=== PATIENT | female | born 1945 | race Caucasian/White ===

== ENCOUNTER 2018-08-19 11:29 | Emergency (ER) | payer MEDICARE ==
[2018-08-19 12:33] LABS: #Eosinphils 0.2 thou/uL (0.0-0.7); #Lymphocytes 1.2 thou/uL (1.20-3.40); #Monocytes 0.4 thou/uL (0.11-0.59); #Neutrophils 5.5 thou/uL (1.40-6.50); %Basophils 0.6 % (0.0-1.0); %Eosinophils 2.5 % (0.0-10.0); %Lymphocytes 16.9 % (21.0-51.0); %Monocytes 5.7 % (0.0-10.0); %Neutrophils 74.4 % (42.0-75.0); Hemoglobin 14.2 g/dL (12.0-16.0); Mean Corpuscular HGB CONC 33.7 g/dL (32.0-36.0); Mean Corpuscular Hemoglobin 31.8 pg (27.0-31.0); Mean Corpuscular Volume 94.1 fL (78.0-98.0); Mean Platelet Volume 8.1 fL (7.4-10.4); Platelet Count 210 thou/uL (130-400); RBC Distribution Width 12.6 % (11.5-14.5); Red Blood Cell (RBC) Count 4.46 mill/uL (4.20-5.40); White Blood Cell (WBC) Count 7.4 thou/uL (4.8-10.8)
[2018-08-19 12:46] LABS: Bilirubin Negative (Negative); Blood, Urine Small (Negative); Clarity CLEAR (Clear); Glucose, Urine (Dipstick) Negative (Negative); Leukocyte Moderate (Negative); Nitrite Negative (Negative); Protein, Urine (Dipstick) Negative (Neg-Trace); Specific Gravity, Urine 1.017 (1.002-1.036); Urobilinogen 0.2 mg/dL (0.2-1.0); pH, Urine 6.5 (5.0-9.0)
[2018-08-19 12:49] LABS: Albumin 4.4 g/dL (3.4-4.8); Alkaline Phosphatase 63 U/L (40-150); Anion Gap 12 mmol/L (10-20); BUN (Urea Nitrogen) 14 mg/dL (9.8-20.1); Bilirubin, Total 1.3 mg/dL (0.2-1.2); Calc. Creatinine Clearance 0 mL/min (70-130); Calcium 9.8 mg/dL (7.8-10.44); Carbon Dioxide 28 mmol/L (23-31); Chloride 104 mmol/L (98-107); Estimated GFR-MDRD 76; Globulin 3.3 g/dL (2.4-3.5); Glucose 95 mg/dL (83-110); Potassium 3.9 mmol/L (3.5-5.1); Protein, Total 7.7 g/dL (6.0-8.3); Sodium 140 mmol/L (136-145)
[2018-08-19 12:49] LABS: Bacteria/HPF None Seen HPF (None Seen); Hyaline Casts/LPF 0-3 HYALINE CAST LPF (0-3 Hyaline); Pathc Cast-AUWi Flag 0.29 (0-2.49); Squamous Epithelial 0-3 HPF (0-3)
[2018-08-19 12:50] LABS: AST (SGOT) 21 U/L (5-34)
[2018-08-19 12:51] LABS: ALT (SGPT) 14 U/L (8-55)
[2018-08-19 13:00] LABS: CK (CPK) 53 U/L (29-168)
[2018-08-19 13:13] LABS: CKMB 2.1 ng/mL (0-6.6); Troponin I Less than 0.010 ng/mL (< 0.028)
--- NOTE | 2018-08-19 13:16 | RAD ---
FRONTAL VIEW CHEST: Date: 08/19/18 COMPARISON: 11/25/16. INDICATION: Dyspnea. FINDINGS: There remains enlargement of the cardiac silhouette. Postoperative change in the mediastinum and left side cardiac pacing device remain. Persistent elevation of right hemidiaphragm. There is stable opac ity at the lateral left lung base. Otherwise no significant interval change. IMPRESSION: Stable findings of CHF. POS: [facility]
[2018-08-19] MEDS ORDERED: Cephalexin 250 MG CAP ONE (14:07)
--- NOTE | 2018-08-22 14:06 | EKG ---
Test Reason : Blood Pressure : / mmHG Vent. Rate : 090 BPM Atrial Rate : 131 BPM P-R Int : 000 ms QRS Dur : 094 ms QT Int : 390 ms P-R-T Axes : 081 -20 102 degrees QTc Int : 477 ms Sinus rhythm with atrial pacing Left ventricular hypertrophy with repolarization abnormality Abnormal ECG Confirmed by LISA MOON DO ([id number]), continuity editor UZAIR KINGSLEY ([id number]) on 08/22/2018 2:05:50 PM Referred By: Confirmed By:LISA MOON DO
== END 2018-08-19 15:34 | disposition home or self-care (01) ==
LOC: ERS 11:29
DX: N39.0 Urinary tract infection, site not specified (principal); R53.1 Weakness; I25.10 Atherosclerotic heart disease of native coronary artery without angina pectoris; I11.0 Hypertensive heart disease with heart failure; I48.91 Unspecified atrial fibrillation
CPT/HCPCS: 36415; 71045; 80053; 81003; 81015; 82553; 84484; 85025; 93005

== ENCOUNTER 2018-11-05 14:08 | Emergency (ER) | payer MEDICARE ==
[2018-11-05 14:38] LABS: #Eosinphils 0.3 thou/uL (0.0-0.7); #Lymphocytes 1.4 thou/uL (1.20-3.40); #Monocytes 0.6 thou/uL (0.11-0.59); %Basophils 0.2 % (0.0-1.0); %Eosinophils 5.6 % (0.0-10.0); %Lymphocytes 25.8 % (21.0-51.0); %Monocytes 11.5 % (0.0-10.0); %Neutrophils 56.9 % (42.0-75.0); Hemoglobin 14.4 g/dL (12.0-16.0); Mean Corpuscular HGB CONC 33.3 g/dL (32.0-36.0); Mean Corpuscular Hemoglobin 30.9 pg (27.0-31.0); Mean Corpuscular Volume 92.6 fL (78.0-98.0); Mean Platelet Volume 7.5 fL (7.4-10.4); Platelet Count 172 thou/uL (130-400); RBC Distribution Width 12.5 % (11.5-14.5); Red Blood Cell (RBC) Count 4.65 mill/uL (4.20-5.40); White Blood Cell (WBC) Count 5.2 thou/uL (4.8-10.8)
[2018-11-05 14:58] LABS: ALT (SGPT) 13 U/L (8-55); AST (SGOT) 20 U/L (5-34); Albumin 4.2 g/dL (3.4-4.8); Alkaline Phosphatase 71 U/L (40-150); Anion Gap 14 mmol/L (10-20); BUN (Urea Nitrogen) 13 mg/dL (9.8-20.1); Bilirubin, Total 1.4 mg/dL (0.2-1.2); CK (CPK) 123 U/L (29-168); Calc. Creatinine Clearance 0 mL/min (70-130); Calcium 10.1 mg/dL (7.8-10.44); Carbon Dioxide 26 mmol/L (23-31); Chloride 104 mmol/L (98-107); Estimated GFR-MDRD 71; Globulin 3.3 g/dL (2.4-3.5); Glucose 90 mg/dL (83-110); Potassium 4.2 mmol/L (3.5-5.1); Protein, Total 7.5 g/dL (6.0-8.3); Sodium 140 mmol/L (136-145)
[2018-11-05] MEDS ORDERED: predniSONE 20 MG TAB ONE (16:20)
[2018-11-05] MEDS ORDERED: Azithromycin 250 MG TAB ONE (16:20)
--- NOTE | 2018-11-05 16:31 | RAD ---
PORTABLE AP CHEST X-RAY: 11/05/2018 HISTORY: Respiratory distress. COMPARISON: 08/19/2018 FINDINGS: A dual-lead left subclavian cardiac pacemaker device remains in place. Post surgical change related to CABG is again noted. The cardiac silhouette is magnified by projection but is stable in size. Ag ain noted is eventration of the right hemidiaphragm with elevation of the lateral left hemidiaphragm, which may be related to mild pleural and parenchymal scarring at the left lung base. The pulmonary vasculature is within normal limits. The lungs are otherwise clear. IMPRESSION: Overall stable chest without an acute cardiopulmonary process. There is stable increased density at the lateral left lung base, which may be a combination of mild elevation of the left hemidiaphragm an d epicardial fat pad. A similar finding was seen on the prior study, as well as on exam of 7. POS: [facility]
== END 2018-11-05 16:30 | disposition home or self-care (01) ==
LOC: ERS 14:08
DX: J44.1 Chronic obstructive pulmonary disease with (acute) exacerbation (principal); I10 Essential (primary) hypertension; I48.91 Unspecified atrial fibrillation; I25.10 Atherosclerotic heart disease of native coronary artery without angina pectoris
CPT/HCPCS: 36415; 71045; 80053; 82550; 83880; 84484; 85025; 93005; 94640; J7506

== ENCOUNTER 2018-11-16 09:42 | Inpatient (IN) | payer MEDICARE ==
[2018-11-16 10:13] LABS: #Eosinphils 0.3 thou/uL (0.0-0.7); #Lymphocytes 2.3 thou/uL (1.20-3.40); #Monocytes 0.6 thou/uL (0.11-0.59); #Neutrophils 10.3 thou/uL (1.40-6.50); %Basophils 0.1 % (0.0-1.0); %Eosinophils 1.9 % (0.0-10.0); %Lymphocytes 17.2 % (21.0-51.0); %Monocytes 4.2 % (0.0-10.0); %Neutrophils 76.6 % (42.0-75.0); Hemoglobin 15.2 g/dL (12.0-16.0); Mean Corpuscular HGB CONC 32.8 g/dL (32.0-36.0); Mean Corpuscular Hemoglobin 30.3 pg (27.0-31.0); Mean Corpuscular Volume 92.4 fL (78.0-98.0); Mean Platelet Volume 7.7 fL (7.4-10.4); Platelet Count 269 thou/uL (130-400); RBC Distribution Width 12.6 % (11.5-14.5); Red Blood Cell (RBC) Count 5.01 mill/uL (4.20-5.40); White Blood Cell (WBC) Count 13.4 thou/uL (4.8-10.8)
[2018-11-16 10:31] LABS: ALT (SGPT) 12 U/L (8-55); AST (SGOT) 15 U/L (5-34); Albumin 4.3 g/dL (3.4-4.8); Alkaline Phosphatase 71 U/L (40-150); Anion Gap 15 mmol/L (10-20); BUN (Urea Nitrogen) 20 mg/dL (9.8-20.1); CK (CPK) 49 U/L (29-168); Calc. Creatinine Clearance 0 mL/min (70-130); Calcium 9.9 mg/dL (7.8-10.44); Carbon Dioxide 25 mmol/L (23-31); Chloride 106 mmol/L (98-107); Estimated GFR-MDRD 62; Globulin 3.2 g/dL (2.4-3.5); Glucose 105 mg/dL (83-110); Lipase 14 U/L (8-78); Potassium 4.3 mmol/L (3.5-5.1); Protein, Total 7.5 g/dL (6.0-8.3); Sodium 142 mmol/L (136-145)
[2018-11-16] MEDS ORDERED: methylPREDNISolone Sod Succ/PF 125 MG/2 ML VIAL ONE (10:43)
--- NOTE | 2018-11-16 10:59 | RAD ---
RADIOGRAPH CHEST 1 VIEW: HISTORY: A 73-year-old female with chest pain and atrial fibrillation. FINDINGS: There is no air space density, pulmonary edema, or pneumothorax. The lateral costophrenic angles are sharp. There is a dual-lead left subclavian pacemaker. There are sternotomy wires. There are surg ical clips overlying the left side of the cardiac shadow. IMPRESSION: 1. No acute pulmonary findings. 2. Status post coronary artery bypass graft surgery is evidence for coronary atherosclerotic disease . 3. Pacemaker. jn [] POS: [facility]
--- NOTE | 2018-11-16 12:18 | CT ---
CT THORAX WITHOUT IV CONTRAST: Date: 11/16/18 HISTORY: Tachycardia and cough. Atrial fibrillation. COMPARISON: None available. FINDINGS: A dual lead left subclavian cardiac pacemaking device is noted in place with RA and RV leads. Dense v ascular calcifications are seen in the mitral valve annulus. Postsurgical changes related to CABG are noted. Multiple surgical clips are also seen in the epigastric region and left upper quadrant of the abdomen . There is a hiatal hernia noted. Dense vascular calcifications are seen in the coronary arteries, as well as involving the thoracic an d visualized upper abdominal aorta. There is ectasia of the ascending thoracic aorta which measures 4 .4 cm in diameter. There is a prominent pretracheal lymph node present measuring 1.3 cm in short axis dimension. There i s fat centrally within the lymph node. No additional enlarged lymph nodes are seen by CT size criteri a on this nonenhanced CT scan exam. There is scarring versus atelectasis in the lateral aspect of right lower lobe adjacent to the medias tinum in the region of the hiatal hernia. Lungs are otherwise clear. No discrete pulmonary nodule, ma ss, or pleural effusion is seen. Upper abdomen demonstrates grossly normal nonenhanced CT appearance. There is suggestion of a small d uodenal diverticulum also seen on prior CT abdomen on 03/08/16. IMPRESSION: 1. Lungs are clear aside from curvilinear scarring versus atelectasis at the lateral left lung base. 2. Postsurgical changes lower mediastinum and epigastric region, as well as adjacent to the splenic hilum. There is evidence of a hiatal hernia. 3. Ectasia of the ascending thoracic aorta measuring 4.4 cm in diameter. Dense atherosclerotic vascu lar calcifications are seen in the thoracic aorta, as well as involving the coronary arteries. 4. There is evidence of an aortic valve replacement. 5. Prominent mitral valve calcifications. 6. Remainder of findings are as described above. POS: [facility]
[2018-11-16] MEDS ORDERED: Metoclopramide HCl 10 MG/2 ML VIAL ONE (13:27)
[2018-11-16] MEDS ORDERED: Diltiazem 125 MG/25 ML ONE (13:27)
[2018-11-16] MEDS ORDERED: Acetaminophen 500 MG TAB ONE (14:56)
[2018-11-16] MEDS ORDERED: Azithromycin 500 MG VIAL ONE (14:56)
[2018-11-16] MEDS ORDERED: cefTRIAXone\\ROCEPHIN 2 GM VIAL ONE (14:56)
[2018-11-16] MEDS ORDERED: Diltiazem 125 MG in Sodium Chloride 0.9% 100 ML IVPB SCH (15:30)
[2018-11-16] MEDS ORDERED: cloNIDine 0.1 MG TAB PO PRN (15:38)
[2018-11-16] MEDS ORDERED: Bisacodyl 5 MG TAB PO PRN (15:38)
[2018-11-16] MEDS ORDERED: Sodium Chloride 0.65% Nasal 44 ML BOT EA NARE PRN (15:38)
[2018-11-16] MEDS ORDERED: Senokot S 8.6-50 MG TAB PO PRN (15:38)
[2018-11-16] MEDS ORDERED: Ondansetron PF 4 MG/2 ML Vial IVP PRN ×2 (15:38)
[2018-11-16] MEDS ORDERED: Diabetic Tussin 200 MG/10 ML UDCUP PO PRN (15:38)
[2018-11-16] MEDS ORDERED: hydrALAZINE 20 MG/ML VIAL SLOW IVP PRN (15:38)
[2018-11-16] MEDS ORDERED: Nitroglycerin 0.4 MG TAB (25 Tab Bottle) SL PRN (15:38)
[2018-11-16] MEDS ORDERED: Benzonatate 100 MG CAP PO PRN (15:38)
[2018-11-16 16:22] LABS: Prothrombin Time 13.1 SEC (12.0-14.7)
--- NOTE | 2018-11-16 17:20 | HP ---
PRIMARY CARE PHYSICIAN: Dr. Kimberly Solares. PRIMARY ECONOMIC DEVELOPMENT MANAGER: Dr. Julieta Giron. CHIEF COMPLAINT: Fast heart rate, cough, and generalized weakness. HISTORY OF PRESENTING ILLNESS: Ms. Palomo is a pleasant 73-year-old female with past medical history of coronary artery disease, aortic valve replacement initially with mechanical then bovine as well as history of hypertension, atrial fibrillation, chronic diastolic congestive heart failure, who presented to the emergency room with the above-mentioned complaint. History is mainly obtained by the patient herself. Electronic medical records have been reviewed. Ms. Palomo reports that she had one episode of atrial fibrillation after surgery few years ago and was briefly treated with Multaq and Coumadin for that. She has never undergone ablation or cardioversion. She follows up with Dr. Giron, but has been taken off Multaq and Coumadin many years ago when the atrial fibrillation did not reoccur. She reports that recently, about a week ago, she felt that she has an infection from one of the workers for her . She has been having cough, generalized weakness, and some chills. She was treated with steroids and a Z-Dereck by the ER physicians about a week ago and then followed up with a primary care physician, who treated her with nebulizer. She did not really feel that well at all. She started to notice that her heart rate is going faster. She was seen at Dr. Childers's office today it seems like and was sent to the ER when she was found to be in atrial fibrillation. She has a pacemaker and according to the notes from Cardiology's office, the atrial fibrillation burden was low per the pacemaker interrogation, but it did show that she is in persistent atrial tachycardia and atrial fibrillation for the last six days. In the emergency room, she has blood pressure of 177/136 and a heart rate in the 140s to 150s. One dose of Cardizem was given, which converted her from atrial fibrillation to atrial flutter. She is now being started on Cardizem drip and is being admitted for same. She was also found to have some wheezing in the ER, so was treated with Solu-Medrol as well as IV antibiotics for possible pneumonia; however, her chest x-ray and a CT scan of the chest are negative for any pneumonia or congestive heart failure. PAST MEDICAL HISTORY: 1. Coronary artery disease. 2. Degenerative joint disease. 3. Hiatal hernia. 4. Obesity. 5. History of prosthetic aortic valve. 6. Chronic diastolic congestive heart failure. 7. Hypertension. 8. Sleep apnea. PAST SURGICAL HISTORY: 1. Aortic valve replacement, initially mechanical, then bovine. 2. CABG. 3. Pacemaker placement. 4. Inguinal hernia repair. 5. Left knee surgery. 6. Hysterectomy. FAMILY HISTORY: Mother had heart disease. Maternal grandfather and grandmother had stroke. Maternal uncle had heart problems. SOCIAL HISTORY: She is and lives with her . No history of drug, tobacco, or alcohol abuse. ALLERGIES: INCLUDE BENADRYL, CEPHALOSPORIN, HYDROCHLOROTHIAZIDE, IRBESARTAN, CEFDINIR, MOXIFLOXACIN, AND IODINE, WHICH CAUSES ANAPHYLAXIS. CURRENT HOME MEDICATIONS: According to the note from [facility], she is on following; 1. Micardis 80 mg daily. 2. Iron 325 mg daily. 3. Lasix 20 mg daily. 4. Aspirin 81 mg daily. 5. Clonidine as needed. 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 REVIEW OF SYSTEMS: A 12-point review of system is done, it is negative except for those mentioned in the history and physical. CODE STATUS: Full code discussed with the patient. LABORATORY DATA: Her CBC shows WBCs at 13.4, neutrophils 76%. Serum chemistries unremarkable. BNP 247. Troponin normal. Lactic acid normal. Chest x-ray by my review has no evidence to suggest pleural effusion or edema. CT scan of the chest is negative for same. PHYSICAL EXAMINATION: VITAL SIGNS: Upon presentation, blood pressure 177/136, pulse of 155, respirations 21, temperature 98.8, and saturating 95% on room air. GENERAL: She does appear somewhat ill looking and pale, otherwise in no acute distress. She is awake, alert, and oriented x3. She does have some congestive sound and cough during the interview. HEENT: Mucous membrane is moist and pink. No oropharyngeal exudate or erythema. Head is normocephalic and atraumatic. Pupils are equal, reactive to light and accommodation. Extraocular movement intact. NECK: Supple without any lymphadenopathy, JVD, or bruit. CHEST: Evaluation shows diffuse expiratory wheezes, more so on the right side than the left side. No crackles. Rate and rhythm, tachycardic and irregular. No murmurs heard. ABDOMEN: Obese, soft, nontender, nondistended with positive bowel sounds. EXTREMITIES: Free of any cyanosis, clubbing, or edema. NEUROLOGIC: Nonfocal. SKIN: Free of any rashes or bruises. Feels warm and dry to touch. PSYCHIATRIC: Normal affect. IMPRESSION AND PLAN: 1. Atrial flutter with rapid ventricular response. The patient will be started on Cardizem drip and b.i.d. Lovenox for anticoagulation. We will consult electrophysiology as well as Cardiology for further recommendations. I have briefly discussed the possibility of ablation with the patient and at this time, she is requesting that this will be done as an outpatient as she is the sole care provider for her . Most likely scenario is adequate rate control and starting her on anticoagulation with discharge with outpatient ablation if necessary. We will wait for recommendations from Cardiology and electrophysiology groups. 2. Bronchitis. No evidence of pneumonia. Likely a viral versus superimposed bacterial bronchitis. She has clearly failed outpatient therapy. We will provide her with IV antibiotics in the hospital. Unfortunately, she has listed allergy to most of the common antibiotics used. She has tolerated the Rocephin and azithromycin in the ER. We will continue that at this time. 3. History of biological aortic valve. We will repeat the echocardiogram to assess the artificial valve. 4. Chronic diastolic congestive heart failure. Repeat echocardiogram as above. 5. Hypertension. Restart her home medication and monitor closely as she gives history of labile hypertension. 6. Add supportive care in the form of nebulizers, Mucinex, incentive spirometry. At this time, I would like to interrupt her steroids as there is no clear indication for them. She has received a big dose in the ER anyway. 7. Code status. Full code discussed with the patient in detail. DISPOSITION: Ms. Palomo is currently being admitted to the hospital with reoccurrence of atrial fibrillation, flutter with RVR. Further management will depend upon her clinical course. Job ID: [id number]
[2018-11-16 19:45] VITALS: BMI 31.8
[2018-11-16] MEDS: Enoxaparin Sodium 100 MG/ML SYRINGE SC SCH (21:59)
[2018-11-16] MEDS: Famotidine 20 MG TAB PO SCH (22:01)
[2018-11-16] MEDS: guaiFENesin ER 600 MG TAB PO SCH (22:02)
[2018-11-17] MEDS: Acetaminophen 325 MG TAB PO PRN (00:25)
[2018-11-17] MEDS: Diltiazem 125 MG in Sodium Chloride 0.9% 100 ML IVPB SCH ×2 (06:27→21:08)
[2018-11-17 06:31] LABS: #Lymphocytes 1.2 thou/uL (1.20-3.40); #Monocytes 0.5 thou/uL (0.11-0.59); #Neutrophils 6.5 thou/uL (1.40-6.50); %Basophils 0.1 % (0.0-1.0); %Eosinophils 0.3 % (0.0-10.0); %Monocytes 6.4 % (0.0-10.0); %Neutrophils 78.3 % (42.0-75.0); Hemoglobin 12.7 g/dL (12.0-16.0); Mean Corpuscular HGB CONC 32.2 g/dL (32.0-36.0); Mean Corpuscular Hemoglobin 30.2 pg (27.0-31.0); Mean Corpuscular Volume 93.7 fL (78.0-98.0); Platelet Count 199 thou/uL (130-400); RBC Distribution Width 12.7 % (11.5-14.5); Red Blood Cell (RBC) Count 4.23 mill/uL (4.20-5.40); White Blood Cell (WBC) Count 8.3 thou/uL (4.8-10.8)
[2018-11-17 06:48] LABS: Anion Gap 11 mmol/L (10-20); BUN (Urea Nitrogen) 16 mg/dL (9.8-20.1); Calc. Creatinine Clearance 94 mL/min (70-130); Calcium 9.3 mg/dL (7.8-10.44); Carbon Dioxide 27 mmol/L (23-31); Chloride 109 mmol/L (98-107); Estimated GFR-MDRD 75; Glucose 134 mg/dL (83-110); Potassium 4.5 mmol/L (3.5-5.1); Sodium 142 mmol/L (136-145)
[2018-11-17] MEDS: Famotidine 20 MG TAB PO SCH ×2 (07:48→21:00)
[2018-11-17] MEDS: Enoxaparin Sodium 100 MG/ML SYRINGE SC SCH ×2 (07:48→20:58)
[2018-11-17] MEDS: guaiFENesin ER 600 MG TAB PO SCH ×2 (07:50→20:58)
[2018-11-17] MEDS ORDERED: Enoxaparin Sodium 40 MG/0.4 ML SYRINGE SC SCH (09:00)
[2018-11-17] MEDS ORDERED: Potassium Chloride 20 MEQ TAB PO SCH ×2 (09:15→12:30)
--- NOTE | 2018-11-17 12:33 | PDOC.PN ---
- Subjective Encounter Start Date: 11/17/18 Encounter Start Time: 12:29 Subjective: feels much better but Hr goes fast when she walks - Objective Resuscitation Status - Order Detail: 11/16/18 16:34 Resuscitation Status Routine Resuscitation Status: FULL: Full Resuscitation Discussed with: discussed with pt ANNABELLE Reviewed: Yes Vital Signs & Weight: Vital Signs (12 hours) Temp Pulse Resp BP Pulse Ox 11/17/18 07:50 97.8 F 80 16 132/63 98 11/17/18 04:00 97.5 F L 79 16 129/61 96 11/17/18 02:25 135 H 20 96 Weight Weight 197 lb 1.6 oz I&O: 11/16/18 11/17/18 11/18/18 06:59 06:59 06:59 Intake Total 625 Output Total 600 Balance 25 Result Diagrams: 11/17/18 05:59 11/17/18 05:59 Additional Labs: Laboratory Tests 11/16/18 10:01 Troponin I 0.028 Phys Exam - Physical Examination Constitutional: NAD HEENT: PERRLA, moist MMs, sclera anicteric, oral pharynx no lesions, 2+ tonsils Neck: no nodes, no JVD, supple, full ROM Respiratory: no wheezing, no rales, no rhonchi Cardiovascular: RRR, no significant murmur Gastrointestinal: soft, non-tender, no distention, positive bowel sounds Musculoskeletal: no edema, pulses present Neurological: non-focal, normal sensation, moves all 4 limbs Psychiatric: normal affect, A&O x 3 Skin: no rash Dx/Plan (1) Chronic atrial fibrillation with RVR Code(s): I48.2 - CHRONIC ATRIAL FIBRILLATION Status: Acute Comment: with RVR -on CCB drip.on BID lovenox (2) CAD (coronary artery disease) Code(s): I25.10 - ATHSCL HEART DISEASE OF [place] CORONARY ARTERY W/O ANG PCTRS Status: Chronic (3) GERD (gastroesophageal reflux disease) Code(s): K21.9 - GASTRO-ESOPHAGEAL REFLUX DISEASE WITHOUT ESOPHAGITIS Status: Chronic (4) HTN (hypertension) Code(s): I10 - ESSENTIAL (PRIMARY) HYPERTENSION Status: Chronic Qualifiers: (5) H/O aortic valve replacement with porcine valve Code(s): Z95.3 - PRESENCE OF XENOGENIC HEART VALVE Status: Acute - Plan DVT proph w/SCDs cont CCb drip and anticoagulation -: ECHO. cardiology consulted -: may need EP consult for possible a-flutter -: HD stable. * . Review of Systems - Review of Systems Constitutional: negative: fever, chills, sweats, weakness, malaise, other ENT: negative: Ear Pain, Ear Discharge, Nose Pain, Nose Discharge, Nose Congestion, Mouth Pain, Mouth Swelling, Throat Pain, Throat Swelling, Other Respiratory: negative: Cough, Dry, Shortness of Breath, Hemoptysis, SOB with Excertion, Pleuritic Pain, Sputum, Wheezing Cardiovascular: palpitations. negative: chest pain, orthopnea, paroxysmal nocturnal dyspnea, edema, light headedness, other Gastrointestinal: negative: Nausea, Vomiting, Abdominal Pain, Diarrhea, Constipation, Melena, Hematochezia, Other Genitourinary: negative: Dysuria, Frequency, Incontinence, Hematuria, Retention , Other Musculoskeletal: negative: Neck Pain, Shoulder Pain, Arm Pain, Back Pain, Hand Pain, Leg Pain, Foot Pain, Other Skin: negative: Rash, Lesions, Jerome, Bruising, Other Neurological: negative: Weakness, Numbness, Incoordination, Change in Speech, Confusion, Seizures, Other - Medications/Allergies Allergies/Adverse Reactions: Allergies Allergy/AdvReac Type Severity Reaction Status Date / Time diphenhydramine HCl Allergy Severe Verified 03/24/16 16:57 [From Benadryl] adhesive Allergy Verified 03/24/16 16:57 cefdinir Allergy Verified 03/24/16 16:57 Cephalosporins Allergy Verified 03/24/16 16:57 moxifloxacin Allergy Verified 03/24/16 16:57 moxifloxacin HCl Allergy Verified 03/24/16 16:57 [From Avelox] iodine AdvReac Severe ANAPHYLAXIS, Verified 11/16/18 11:21 SWELLING Medications: Current Medications Acetaminophen (Tylenol) 650 mg PO Q4H PRN PRN Reason: Headache/Fever/Mild Pain (1-3) Last Admin: 11/17/18 00:25 Dose: 650 mg Albuterol/Ipratropium (Duoneb) 3 ml NEB [id number] PRN PRN Reason: SOB &/or Wheezing Last Admin: 11/17/18 02:25 Dose: 3 ml Benzonatate (Tessalon) 100 mg PO Q6H PRN PRN Reason: Cough Last Admin: 11/16/18 22:28 Dose: 100 mg Bisacodyl (Dulcolax) 10 mg PO DAILYPRN PRN PRN Reason: Constipation Clonidine (Catapres) 0.1 mg PO Q4H PRN PRN Reason: SBP > 160____ Last Admin: 11/17/18 00:28 Dose: 0.1 mg Enoxaparin Sodium (Lovenox) 90 mg SC 0900,2100 ON LICENSE OF [facility] Last Admin: 11/17/18 07:48 Dose: 90 mg Famotidine (Pepcid) 20 mg PO BID ON LICENSE OF [facility] Last Admin: 11/17/18 07:48 Dose: Not Given Guaifenesin (Robitussin Sf) 200 mg PO Q4H PRN PRN Reason: Cough Guaifenesin (Mucinex) 600 mg PO Q12HR ON LICENSE OF [facility] Last Admin: 11/17/18 07:50 Dose: 600 mg Hydralazine HCl (Apresoline) 10 mg SLOW IVP Q4H PRN PRN Reason: SBP > 180 and HR < 70 Diltiazem HCl 125 mg/ Sodium (Chloride) 125 mls @ 10 mls/hr IVPB INF ON LICENSE OF [facility]; Protocol Last Admin: 11/17/18 06:27 Dose: 125 mls Nitroglycerin (Nitrostat) 0.4 mg SL Q5MIN PRN PRN Reason: Chest Pain Ondansetron HCl (Zofran) 4 mg IVP Q6H PRN PRN Reason: Nausea/Vomiting Senna/Docusate Sodium (Senokot S) 2 tab PO BID PRN PRN Reason: Constipation Sodium Chloride (Grainger Nasal Masterson 0.65%) 0 ml EA NARE QIDPRN PRN PRN Reason: Nasal Congestion Sodium Chloride (Flush - Normal Saline) 10 ml IVF Q12HR ON LICENSE OF [facility] Last Admin: 11/17/18 07:49 Dose: Not Given Sodium Chloride (Flush - Normal Saline) 10 ml IVF PRN PRN PRN Reason: Saline Flush
--- NOTE | 2018-11-17 23:02 | CON ---
DATE OF CONSULTATION: HISTORY OF PRESENT ILLNESS: Ms. Palomo is a 73-year-old white female, admitted with tachycardia with heart rate in the 150s to 160s. In July 2005, she underwent aortic valve replacement with a [employer] supra-annular mechanical prosthesis and CABG x1 to the FERRER. She then was admitted in May 2015 with increased weakness and shortness of breath. On catheterization, it was found that one of the leaflets of the mechanical valve was immobile. The LAD had a 60% stenosis and the FERRER to the LAD was patent. She then underwent redo aortic valve replacement and the mechanical valve was removed and a pericardial bioprosthesis valve was placed. There was found to be constricting pannus ingrowth on the underside of the mechanical valve prosthesis. Also during that admission, a permanent dual- chamber pacemaker was placed. She was discharged on Multaq and Coumadin. Apparently, there was not much atrial fibrillation seen on the pacemaker over time, and ultimately , the Coumadin and Multaq were discontinued. Ms. Palomo complains of increased cough over the last week, feeling that she developed an infection. She also has noted her heart beating very rapidly over the past 4 to 5 days. She came to the office and was in a very regular tachycardia of 150 to 160 per minute. On interrogation of her pacemaker, that she had been this for several days and she was sent to the emergency room. She has been started on intravenous Cardizem, and this has slowed her rate to approximately 100. However, if she gets up to walk to the bathroom, heart rate will dramatically increase. She denies any chest discomfort. PAST MEDICAL HISTORY: Aortic stenosis, coronary artery disease, diastolic heart failure, hypertension, sleep apnea. OPERATIONS: CABG x1 with FERRER to the LAD and mechanical aortic valve replacement. She then underwent redo aortic valve replacement with a bioprosthetic valve, pacemaker placement, hernia repair, left knee surgery, and hysterectomy. MEDICATIONS: 1. Clonidine 0.1 mg p.r.n. 2. Telmisartan 80 mg at bedtime. 3. Acetaminophen. ALLERGIES: 1. BENADRYL. 2. CEFDINIR. 3. CEPHALOSPORINS. 4. MOXIFLOXACIN (AVELOX). 5. IODINE. SOCIAL HISTORY: She does not smoke or drink. She lives with her who has Alzheimer disease and she is the primary caregiver. FAMILY HISTORY: Mother had heart disease. REVIEW OF SYSTEMS: A 10-point review of systems is, otherwise, unremarkable. PHYSICAL EXAMINATION: VITAL SIGNS: Blood pressure 141/65, pulse of 80. HEENT: PERRL. NECK: Supple. CHEST: Reveals expiratory wheezing. HEART: S1 and S2 normal without any S3 or S4. There is a 1/6 to 2/6 systolic murmur. ABDOMEN: Normal bowel sounds without tenderness or organomegaly. EXTREMITIES: Revealed no clubbing, cyanosis, or edema. NEUROLOGIC: Grossly intact. SKIN: Warm and dry. LABORATORY DATA: EKG reveals regular supraventricular tachycardia. When her rate slows, it appears that she is in atrial flutter. CBC is unremarkable. INR 1.0. Sodium 142, potassium 4.5, chloride 109, carbon dioxide 27, BUN 16, creatinine 0.76. BNP 247.6. Cardiac enzymes are unremarkable. IMPRESSION: 1. Atrial flutter with rate better controlled with intravenous Cardizem. 2. History of paroxysmal atrial fibrillation, which apparently has not been much of a problem since her 2nd surgery. 3. Status post redo aortic valve replacement with placement of a bioprosthetic valve. She also had a patent FERRER to the LAD. 4. Bronchitis with an expiratory wheezing, being treated with steroids as well as inhaled bronchodilators. 5. Chronic diastolic heart failure. 6. Hypertension. PLAN: The patient has already been started on Lovenox 1 mg/kg b.i.d. Rate is under fair control at the present time with intravenous Cardizem. Overall, it is recommended that we seek electrophysiology consultation on Monday with the hopes of flutter ablation. She is extremely anxious to get home because she is running out of time with her caregivers with her with Alzheimer disease. Job ID: [id number] [facility]
[2018-11-18] MEDS: guaiFENesin ER 600 MG TAB PO SCH ×2 (09:51→20:22)
[2018-11-18] MEDS: Enoxaparin Sodium 100 MG/ML SYRINGE SC SCH ×2 (09:51→20:22)
[2018-11-18] MEDS: Famotidine 20 MG TAB PO SCH (09:51)
[2018-11-18] MEDS ORDERED: methylPREDNISolone Sod Succ/PF 125 MG/2 ML VIAL IVP SCH (11:15)
[2018-11-18] MEDS ORDERED: Famotidine/PF 20 mg/2ml Vial SLOW IVP SCH (11:30)
--- NOTE | 2018-11-18 12:32 | PDOC.PN ---
- Subjective Encounter Start Date: 11/18/18 Encounter Start Time: 12:30 Subjective: feels emotional and overwhelmed and tearful -: feels weak and poorly "i am exhausted"."this is going on for weks" - Objective Resuscitation Status - Order Detail: 11/16/18 16:34 Resuscitation Status Routine Resuscitation Status: FULL: Full Resuscitation Discussed with: discussed with pt MAR Reviewed: Yes Vital Signs & Weight: Vital Signs (12 hours) Temp Pulse Resp BP Pulse Ox 11/18/18 07:50 97.9 F 85 16 134/60 98 11/18/18 06:37 98 11/18/18 06:36 82 16 98 11/18/18 03:10 97.8 F 84 16 113/57 L 96 Weight Weight 197 lb 1 oz I&O: 11/17/18 11/18/18 11/19/18 06:59 06:59 06:59 Intake Total 625 240 Output Total 600 600 Balance 25 -360 Result Diagrams: 11/17/18 05:59 11/17/18 05:59 Phys Exam - Physical Examination Constitutional: NAD HEENT: PERRLA, moist MMs, sclera anicteric, oral pharynx no lesions Neck: no nodes, no JVD, supple, full ROM Respiratory: no wheezing, no rales, no rhonchi Cardiovascular: no significant murmur, irregular Gastrointestinal: soft, non-tender, no distention, positive bowel sounds Musculoskeletal: no edema, pulses present Neurological: non-focal, normal sensation, moves all 4 limbs Psychiatric: normal affect, A&O x 3 Skin: no rash Dx/Plan (1) Chronic atrial fibrillation with RVR Code(s): I48.2 - CHRONIC ATRIAL FIBRILLATION Status: Acute Comment: with RVR -on CCB drip.on BID lovenox (2) CAD (coronary artery disease) Code(s): I25.10 - ATHSCL HEART DISEASE OF [place] CORONARY ARTERY W/O ANG PCTRS Status: Chronic (3) GERD (gastroesophageal reflux disease) Code(s): K21.9 - GASTRO-ESOPHAGEAL REFLUX DISEASE WITHOUT ESOPHAGITIS Status: Chronic (4) HTN (hypertension) Code(s): I10 - ESSENTIAL (PRIMARY) HYPERTENSION Status: Chronic Qualifiers: (5) H/O aortic valve replacement with porcine valve Code(s): Z95.3 - PRESENCE OF XENOGENIC HEART VALVE Status: Acute - Plan PT/OT, respiratory therapy, incentive spirometry, out of bed/ambulate, DVT proph w/SCDs cont Cardiazem drip and Anticoagulation with Lovenox -: EP consult for tomorrow for possible ablation. -: NPO after MN/.HD stable -: consult PCT for coping issues. -: ARB on hold to accomodate for IV Cardiazem.BP stable * . Review of Systems - Review of Systems Constitutional: weakness, malaise. negative: fever, chills, sweats, other ENT: negative: Ear Pain, Ear Discharge, Nose Pain, Nose Discharge, Nose Congestion, Mouth Pain, Mouth Swelling, Throat Pain, Throat Swelling, Other Respiratory: Cough, Dry, SOB with Excertion. negative: Shortness of Breath, Hemoptysis, Pleuritic Pain, Sputum, Wheezing Cardiovascular: palpitations. negative: chest pain, orthopnea, paroxysmal nocturnal dyspnea, edema, light headedness, other Gastrointestinal: negative: Nausea, Vomiting, Abdominal Pain, Diarrhea, Constipation, Melena, Hematochezia, Other Genitourinary: negative: Dysuria, Frequency, Incontinence, Hematuria, Retention , Other Musculoskeletal: negative: Neck Pain, Shoulder Pain, Arm Pain, Back Pain, Hand Pain, Leg Pain, Foot Pain, Other Neurological: negative: Weakness, Numbness, Incoordination, Change in Speech, Confusion, Seizures, Other - Medications/Allergies Allergies/Adverse Reactions: Allergies Allergy/AdvReac Type Severity Reaction Status Date / Time diphenhydramine HCl Allergy Severe Verified 03/24/16 16:57 [From Benadryl] adhesive Allergy Verified 03/24/16 16:57 cefdinir Allergy Verified 03/24/16 16:57 Cephalosporins Allergy Verified 03/24/16 16:57 moxifloxacin Allergy Verified 03/24/16 16:57 moxifloxacin HCl Allergy Verified 03/24/16 16:57 [From Avelox] iodine AdvReac Severe ANAPHYLAXIS, Verified 11/16/18 11:21 SWELLING Medications: Current Medications Acetaminophen (Tylenol) 650 mg PO Q4H PRN PRN Reason: Headache/Fever/Mild Pain (1-3) Last Admin: 11/17/18 00:25 Dose: 650 mg Albuterol/Ipratropium (Duoneb) 3 ml NEB [id number] PRN PRN Reason: SOB &/or Wheezing Last Admin: 11/18/18 06:36 Dose: 3 ml Benzonatate (Tessalon) 100 mg PO Q6H PRN PRN Reason: Cough Last Admin: 11/16/18 22:28 Dose: 100 mg Bisacodyl (Dulcolax) 10 mg PO DAILYPRN PRN PRN Reason: Constipation Clonidine (Catapres) 0.1 mg PO Q4H PRN PRN Reason: SBP > 160____ Last Admin: 11/17/18 00:28 Dose: 0.1 mg Enoxaparin Sodium (Lovenox) 90 mg SC 0900,2100 [facility] Last Admin: 11/18/18 09:51 Dose: 90 mg Famotidine (Pepcid) 20 mg SLOW IVP BID JOY Famotidine (Pepcid) 20 mg SLOW IVP NOW [facility] Stop: 11/18/18 13:30 Last Admin: 11/18/18 12:24 Dose: 20 mg Guaifenesin (Robitussin Sf) 200 mg PO Q4H PRN PRN Reason: Cough Guaifenesin (Mucinex) 600 mg PO Q12HR [facility] Last Admin: 11/18/18 09:51 Dose: 600 mg Hydralazine HCl (Apresoline) 10 mg SLOW IVP Q4H PRN PRN Reason: SBP > 180 and HR < 70 Diltiazem HCl 125 mg/ Sodium (Chloride) 125 mls @ 10 mls/hr IVPB INF [facility]; Protocol Last Admin: 11/17/18 21:08 Dose: 125 mls Methylprednisolone Sodium Succinate (Solu-Medrol) 125 mg IVP NOW [facility] Stop: 11/18/18 13:15 Last Admin: 11/18/18 12:23 Dose: 125 mg Nitroglycerin (Nitrostat) 0.4 mg SL Q5MIN PRN PRN Reason: Chest Pain Ondansetron HCl (Zofran) 4 mg IVP Q6H PRN PRN Reason: Nausea/Vomiting Prednisone (Prednisone) 40 mg PO QAM[facility] Senna/Docusate Sodium (Senokot S) 2 tab PO BID PRN PRN Reason: Constipation Sodium Chloride ([place] Nasal [place] 0.65%) 0 ml EA NARE QIDPRN PRN PRN Reason: Nasal Congestion Sodium Chloride (Flush - Normal Saline) 10 ml IVF Q12HR JOY Last Admin: 11/18/18 09:52 Dose: Not Given Sodium Chloride (Flush - Normal Saline) 10 ml IVF PRN PRN PRN Reason: Saline Flush
--- NOTE | 2018-11-18 12:34 | PDOC.EVN ---
Event Note - Event Note Event Note: Pt inadvertently received 1 dose of levaquin despite recorded allergy to Quinolones.C/O rash and itching.No anaphylaxis.No airway compromise.will give 1 dose IV steroids and IV pepcid BID.daily short course of PO steroid.Monitor.
[2018-11-18] MEDS: Famotidine/PF 20 mg/2ml Vial SLOW IVP SCH (20:24)
[2018-11-18] MEDS ORDERED: Digoxin 0.5 MG/2 ML AMP SLOW IVP SCH (21:00)
[2018-11-19 08:48] LABS: Hemoglobin 13.7 g/dL (12.0-16.0); Platelet Count 199 thou/uL (130-400)
[2018-11-19] MEDS: Enoxaparin Sodium 100 MG/ML SYRINGE SC SCH ×3 (09:56→21:23)
[2018-11-19] MEDS: Famotidine/PF 20 mg/2ml Vial SLOW IVP SCH ×2 (10:00→21:24)
[2018-11-19] MEDS: guaiFENesin ER 600 MG TAB PO SCH ×2 (10:00→21:24)
[2018-11-19] MEDS: predniSONE 20 MG TAB PO SCH (13:53)
--- NOTE | 2018-11-19 18:17 | CON ---
DATE OF CONSULTATION: 11/19/2018 This is an electrophysiology consultation report. REFERRING PHYSICIAN: Dr. Hoskins and also Dr. Giron is the usual dubbing machine operator. PRIMARY CARE PHYSICIAN: Dr. Darryl Fontanez. HISTORY OF PRESENT ILLNESS: I am seeing Ms. Palomo at our [facility] telemetry floor as an Electrophysiology bi consultant for the following problems: 1. Atrial fibrillation prompting Multaq therapy and pacemaker implantation in 2014 following: Aortic valve surgery. b. Multaq later discontinued, but now has more persisting recurring fibrillation/atrial flutter. 2. History of valvular heart disease. a. Prior history of severe aortic valve stenosis prompting bioprosthetic aortic valve replacement as well as single-vessel bypass surgery in 2014. b. 2D echo from 11/17/2018 reveals LVEF 60% to 65%, [id number] stenotic bioprosthetic aortic valve, mild tricuspid regurgitation. Normal right atrial, moderately enlarged left atrial size. 3. Recent bronchitis. 4. CHADS-VASc score of 3, although, TIA prior to admit with transient twisting/ slurred speech are noted (which could increase it to 5). ALLERGIES: DIPHENHYDRAMINE, ADHESIVE, CEFDINIR, AND CEPHALOSPORINS. HOME MEDICATIONS: Included: 1. Clonidine. 2. Tylenol. 3. Telmisartan. SUBJECTIVE: Ms. Palomo is here with symptoms of this progressive dyspnea and cough. She was diagnosed by her primary care physician with bronchitis. She was treated with a nebulizer. Subsequently, she noticed her heart beating faster that was on the 3rd never since the heart racing has not stopped. Her palpitation continued and when she came to the ER. Heart rates in the 140s to 150s were noted. Diltiazem was given and she was seen to be both in fibrillation and flutter. She was subsequently admitted. Currently, rates are better controlled. She is feeling better. No chest pains. No fever, chills, cough. No new stroke-like symptoms. Prior to admission, she did notice some slurring speech and drooping of her face , but this quickly went away. She is continued on Lovenox therapy. REVIEW OF SYSTEMS: Rest of 12-point system otherwise unremarkable. PAST MEDICAL HISTORY: As above. PAST SURGICAL HISTORY: Inguinal hernia repair, left knee surgery, hysterectomy along with AVR, appears to be mechanical then bovine and coronary artery bypass grafting surgery. SOCIAL HISTORY: The patient denies smoking, EtOH, or drug abuse. 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 She takes care of her , who is chronically ill. They have a son. FAMILY HISTORY: Otherwise significant for mother having heart disease, uncle had heart problems as well, and grandmother had a stroke. OBJECTIVE DATA: VITAL SIGNS: The blood pressure is 178/79, heart rate 79, respiratory rate 20, and temperature 97.7 degrees Fahrenheit. GENERAL: Alert and oriented woman, in no apparent distress. NECK: Supple. Jugular veins not distended. CHEST: Coarse without crackles. HEART: Sounds are irregularly irregular. S1 and S2 are variable as a 1/6 systolic ejection murmur heard. PMI is nondisplaced. Midsternal scar is well healed. ABDOMEN: Benign. Bowel sounds positive. EXTREMITIES: Lower extremities without edema, clubbing, or cyanosis. Pulses are adequate. NEUROLOGIC: The patient is nonfocal. MUSCULOSKELETAL: No joint swelling or deformity. SKIN: Without rash. DATABASE: The pacemaker interrogation reveals a [employer] Labtronic Advisa DR dual- chamber pacemaker. Battery longevity about over 5 years. Lead parameters are adequate. The episode counters reveal persisting atrial fibrillation for last 11 days. Episodes of occasional rapid nonsustained VT episodes are likely represent atrial fibrillation with RVR. LABORATORY DATA: White cell count is 8.3, hemoglobin 12.7, platelet count is 199. The INR 1.0. Sodium 142, potassium 4.5, BUN is 16, creatinine 0.76. The BNP is 247. Troponin I 0.028 in normal range. 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 ASSESSMENT AND PLAN: Ms. Palomo is a very pleasant 73-year-old woman with prior history of aortic valve disease, bioprosthetic aortic valve in place, who has had history of atrial fibrillation in the past requiring Multaq, but has been discontinued after healing from her bypass surgery. She also has a dual-chamber pacemaker in place with good tracking of her fibrillation episodes. It seems that she has gone into fibrillation in last 11 days and has not came out of it. Occasional rates are rapid in the 150s to 160s. Her EKGs I reviewed and indeed shows atypical atrial flutter on presentation likely 2:1 AV conduction, improving with diltiazem therapy. I do not have seen convincing evidence of typical atrial flutter. Occasional fibrillation also noted. We discussed the etiology of her atrial arrhythmias. The treatment options were also discussed. The detail of the benefit of a QUYNH-guided cardioversion to rule out intracardiac clots after anticoagulation was suboptimal, also resuming Multaq therapy to suppress recurrent atrial fibrillation would be reasonable. Also, we discussed option of pulmonary venous isolation procedure, which we opted to consider at a later date, hence her resolving bronchitis. A routine pacemaker therapy is suffice, hence her pacing functions adequate. CHADS-VASc score of 3 maybe 5 is concerned this short TIA like spell. She will clearly need anticoagulation and a QUYNH planned cardioversion. There is benefit of procedure details. She understands and wish to proceed. We will schedule for a near date. Thank you for allowing me to participate in care this patient. Job ID: [id number] MTDD
--- NOTE | 2018-11-19 18:21 | PDOC.PN ---
- Subjective Encounter Start Date: 11/19/18 Encounter Start Time: 18:15 Subjective: f/u for A-fib RVR currently rate-controlled on Cardizem gtt. Concerned -: about cardioversion but understands it will treat her fast heart rate. - Objective Resuscitation Status - Order Detail: 11/16/18 16:34 Resuscitation Status Routine Resuscitation Status: FULL: Full Resuscitation Discussed with: discussed with pt ANNABELLE Reviewed: Yes Vital Signs & Weight: Vital Signs (12 hours) Temp Pulse Resp BP Pulse Ox 11/19/18 17:30 96 12 11/19/18 07:35 97.7 F 79 20 178/79 H 92 L Weight Weight 199 lb I&O: 11/18/18 11/19/18 11/20/18 06:59 06:59 06:59 Intake Total 240 Output Total 600 Balance -360 Result Diagrams: 11/19/18 08:24 11/19/18 08:24 Additional Labs: Laboratory Tests 11/16/18 11/16/18 11/17/18 10:00 10:01 05:59 WBC 13.4 H 8.3 B-Natriuretic Peptide 247.6 H Radiology Reviewed by me: Yes (2D echo - EF 60-65%, mod LAE, mod ) EKG Reviewed by me: Yes (Tele - A-fibrillation in 80's) Phys Exam - Physical Examination Constitutional: NAD HEENT: PERRLA, sclera anicteric, oral pharynx no lesions Neck: no nodes, no JVD, supple, full ROM II/ GERALDINE RUSB, S1, S2 Cardiovascular: no rub, gallop, irregular Gastrointestinal: soft, non-tender, no distention, positive bowel sounds Musculoskeletal: no edema, pulses present Neurological: normal sensation, moves all 4 limbs Psychiatric: A&O x 3 Skin: normal turgor, cap refill <2 seconds Dx/Plan (1) Chronic atrial fibrillation with RVR Code(s): I48.2 - CHRONIC ATRIAL FIBRILLATION Status: Acute Comment: Rate improved on Cardizem gtt, plan for QUYNH/CV in am, continue Lovenox 90mg sc BID (2) Acute bronchiolitis Code(s): J21.9 - ACUTE BRONCHIOLITIS, UNSPECIFIED Status: Acute Comment: Continue pulmonary supportive mgmt, Duonebs, Prednisone, Mucolytics (3) HTN (hypertension) Code(s): I10 - ESSENTIAL (PRIMARY) HYPERTENSION Status: Chronic Qualifiers: Hypertension type: essential hypertension Comment: Labile, continue Cardizem gtt, will titrate home BP regimen prior to d/ c (4) CAD (coronary artery disease) Code(s): I25.10 - ATHSCL HEART DISEASE OF [place] CORONARY ARTERY W/O ANG PCTRS Status: Chronic Comment: Medical mgmt, stable - 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
[2018-11-19] MEDS: Diltiazem 125 MG in Sodium Chloride 0.9% 100 ML IVPB SCH (21:24)
[2018-11-20] MEDS: Diltiazem 125 MG in Sodium Chloride 0.9% 100 ML IVPB SCH (02:07)
[2018-11-20 05:53] LABS: Digoxin 0.51 ng/mL (0.8-2.0)
--- NOTE | 2018-11-20 10:08 | PDOC.PN ---
- Subjective Encounter Start Date: 11/20/18 Encounter Start Time: 10:00 Subjective: f/u for A-fib/flutter RVR with plans for QUYNH/CV today. No new issues other -: than anxiety about the procedure. - Objective Resuscitation Status - Order Detail: 11/16/18 16:34 Resuscitation Status Routine Resuscitation Status: FULL: Full Resuscitation Discussed with: discussed with pt MAR Reviewed: Yes Vital Signs & Weight: Vital Signs (12 hours) Temp Pulse Resp BP BP Pulse Ox 11/20/18 07:30 97.5 F L 85 20 170/79 H 96 11/20/18 07:05 90 12 11/20/18 04:00 98.2 F 64 18 155/71 H 97 11/20/18 03:20 97 11/19/18 23:42 84 18 147/65 H 95 Weight Weight 199 lb I&O: 11/19/18 11/20/18 11/21/18 06:59 06:59 06:59 Intake Total 540 Output Total 450 Balance 90 Result Diagrams: 11/19/18 08:24 11/19/18 08:24 Additional Labs: Laboratory Tests 11/16/18 11/16/18 11/17/18 10:00 10:01 05:59 WBC 13.4 H 8.3 B-Natriuretic Peptide 247.6 H EKG Reviewed by me: Yes (Tele - A-fib in 120's) Phys Exam - Physical Examination Constitutional: NAD HEENT: PERRLA, sclera anicteric, oral pharynx no lesions Neck: no nodes, no JVD, supple, full ROM Respiratory: no wheezing, no rales, no rhonchi, clear to auscultation bilateral S1, S2 with tachycardia Cardiovascular: no significant murmur, no rub, irregular Gastrointestinal: soft, non-tender, no distention, positive bowel sounds Musculoskeletal: no edema, pulses present Neurological: normal sensation, moves all 4 limbs Psychiatric: A&O x 3 Skin: normal turgor, cap refill <2 seconds Dx/Plan (1) Chronic atrial fibrillation with RVR Code(s): I48.2 - CHRONIC ATRIAL FIBRILLATION Status: Acute Comment: Rate improved on Cardizem gtt, plan for QUYNH/CV, continue Lovenox 90mg sc BID (2) Acute bronchiolitis Code(s): J21.9 - ACUTE BRONCHIOLITIS, UNSPECIFIED Status: Acute Comment: Continue pulmonary supportive mgmt, Duonebs, Prednisone, Mucolytics (3) HTN (hypertension) Code(s): I10 - ESSENTIAL (PRIMARY) HYPERTENSION Status: Chronic Qualifiers: Hypertension type: essential hypertension Comment: Labile, continue Cardizem gtt, will titrate home BP regimen prior to d/ c (4) CAD (coronary artery disease) Code(s): I25.10 - ATHSCL HEART DISEASE OF [place] CORONARY ARTERY W/O ANG PCTRS Status: Chronic Comment: Medical mgmt, stable - Plan 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
[2018-11-20] MEDS ORDERED: PROPOFOL 20 ML ONE ×2 (10:49→12:33)
[2018-11-20] MEDS ORDERED: Sodium Chloride 0.9% 20 ML ONE (12:23)
[2018-11-20] MEDS ORDERED: Dronedarone HCl 400 MG TAB PO SCH ×2 (13:30→23:00)
[2018-11-20] MEDS ORDERED: PROPOFOL 200 MG/20 ML VIAL ONE (13:46)
[2018-11-20] MEDS: predniSONE 20 MG TAB PO SCH (15:31)
[2018-11-20] MEDS: Famotidine/PF 20 mg/2ml Vial SLOW IVP SCH ×3 (15:31→20:57)
[2018-11-20] MEDS: guaiFENesin ER 600 MG TAB PO SCH ×2 (15:32→20:52)
[2018-11-20] MEDS: Acetaminophen 325 MG TAB PO PRN (18:27)
--- NOTE | 2018-11-20 20:25 | OP ---
DATE OF PROCEDURE: 11/20/2018 This is a cardioversion report. REFERRING PHYSICIAN: Dr. Hoskins. REASON FOR PROCEDURE: Ms. Palomo is a 73-year-old woman with prior history of atrial arrhythmias, remote history of Multaq use. She has been off Multaq and had recurrent atrial fibrillation, noted on her pacemaker since the 10 of November. She underwent a QUYNH, demonstrating no clots and she has been anticoagulated with Lovenox. She is here for cardioversion. DESCRIPTION OF PROCEDURE: The patient received propofol by Anesthesia specialist. After adequate level of sedation achieved, a synchronized 200-joule shock converted back the patient to sinus rhythm. Atrial rhythm is sinus rhythm at 76 beats per minute. Frequent PACs were seen. CONCLUSION: Successful cardioversion. PLAN: Resume Multaq. Continue pulmonary optimization. Consider pulmonary venous isolation after pulmonary status improves. Also continue anticoagulation with adding NOAC. Job ID: [id number]
[2018-11-20] MEDS: Apixaban 5 MG TAB PO SCH (20:52)
--- NOTE | 2018-11-21 02:01 | OP ---
DATE OF PROCEDURE: 11/20/2018 This is a pacemaker interrogation reprogramming report. REASON FOR PROCEDURE: Ms. Palomo is a 73-year-old female, prior pacemaker implantation here after a QUYNH-guided cardioversion. The pacemaker is checked for function and reprogramming. RESULTS: This is a mytraxtronic Advisa DR MRI compatible dual-chamber pacemaker, battery longevity apex over 5 years. Lead parameters are adequate, sensing 0.5 mV in the atrium and mV in the right ventricle. Impedance is 361 and 456 ohms. The atrial fibrillation seems to be present since 11 of November. The occasional fast AV conduction is seen. The cardioversion, sinus rhythm with frequent PACs were noted. CONCLUSIONS: 1. Successful cardioversion. 2. Programmed atrial antitachycardia pacing on. 3. Changed atrial ATP parameters to be more aggressive. Job ID: [id number]
[2018-11-21] MEDS: Acetaminophen 325 MG TAB PO PRN ×2 (03:52→16:14)
[2018-11-21 07:45] LABS: Hemoglobin 14.2 g/dL (12.0-16.0); Platelet Count 196 thou/uL (130-400)
[2018-11-21] MEDS: Apixaban 5 MG TAB PO SCH (08:27)
[2018-11-21] MEDS: guaiFENesin ER 600 MG TAB PO SCH (08:27)
[2018-11-21] MEDS: Famotidine/PF 20 mg/2ml Vial SLOW IVP SCH (08:27)
[2018-11-21] MEDS: Dronedarone HCl 400 MG TAB PO SCH ×2 (08:28→16:14)
[2018-11-21] MEDS: predniSONE 20 MG TAB PO SCH (08:28)
[2018-11-21 13:22] VITALS: TEMP 98.1
[2018-11-21 17:18] VITALS: BP 160/74
[2018-11-21] MEDS ORDERED: Famotidine 20 MG TAB PO SCH (21:00)
--- NOTE | 2018-11-21 23:33 | ECHO ---
REFERRING PHYSICIAN: Dr. Hoskins REASON FOR PROCEDURE: The patient is a 73-year-old woman with history of atrial arrhythmias which now persists with an atrial flutter/fibrillation noted on this admission and pacemaker interrogation reveals A-fib since the 10 of November. She has not been on anticoagulation which was resumed with Lovenox in the hospital. She is here for QUYNH prior to planned cardioversion. PROCEDURE: The patient received propofol by Anesthesia specialist. After adequate level of sedation achieved, a standard transesophageal echocardiogram probe was passed into the esophagus without difficulty. Patient tolerated the procedure well, no complications noted. RESULTS: Left atrium is moderately enlarged to 5.5 cm in horizontal diameter. The left atrial appendage well visualized contains no clots but heavy spontaneous echo contrast was seen in the left atrial appendage. Left atrial appendage velocities are down to 30 cm per second. Moderate eccentric mitral regurgitation is seen with mild ----- over the lateral leaflet --- to septally directed jet. No definite ----- flow reversal seen in the pulmonary veins. Three pulmonary veins on the right and two on the left were visualized. The mitral valve has some calcification as well. The left ventricular function is preserved. Left ventricular size is normal. Right chambers nondilated. Pacemaker wire is note on the right side chambers. The intra-atrial septum has trace patency of the foramen ovale without significant flow. No biatrial septal defect is appreciated. Aortic valve appears to be bioprosthetic. There is stenosis. The aortic valve area is moderately narrowed. Surface probe ------- measured to 1.2 sq. cm. No regurgitation is seen. CONCLUSION: 1. No intracardiac clots. 2. Moderate left atrial enlargement. 3. Moderate mitral regurgitation with septally directed jet possibly due to leaflet prolapse. 4. Prior aortic valve replacement bioprosthetic with moderate stenosis. 5. Pacing wires in place. 6. Normal left ventricular systolic function. PLAN: Proceed with cardioversion. [facility]ALTHJohn[facility]
--- NOTE | 2018-11-22 05:52 | DIS ---
DATE OF ADMISSION: 11/16/2018 DATE OF DISCHARGE: 11/21/2018 DISCHARGE DIAGNOSES: 1. [id number] atrial fibrillation with rapid ventricular response status post cardioversion on 11/20/2018 without sustained sinus mechanism. 2. Acute bronchiolitis. 3. Hypertension, stable. 4. Coronary artery disease, stable. CONSULTATIONS: 1. Dr. Gauthier with electrophysiology Service. 2. Dr. Stevan Hoskins with Cardiology Service. PERTINENT LAB AND X-RAY FINDINGS: Basic metabolic profile within normal limits. BNP 248. CBC showed a white blood cell count ranging between 8.3 to 13.4, hemoglobin ranging between 12.7 to 15.2. Portable chest x-ray dated 11/16/2018 showed no acute cardiopulmonary process. CT of the chest dated 11/16/2018 showed atelectasis of the lateral left lung base. 2D transthoracic echocardiogram dated 11/17/2018 showed ejection fraction of 60% to 65%. Moderate left atrial enlargement. Bioprosthetic aortic valve with kcmx-dy-apagnodm aortic stenosis. HOSPITAL COURSE: The patient was admitted to the telemetry unit after initially presenting with tachycardia, cough, and generalized weakness. The patient with significant history of aortic valve replacement and atrial arrhythmias including atrial fibrillation/atrial flutter noted with rapid ventricular response. The patient was initially placed on Cardizem infusion and given Lovenox subcutaneously for anticoagulation. The patient was evaluated by the Cardiology Service with recommendations for electrophysiology evaluation and ultimate cardioversion. The patient was medically managed with Lovenox and Cardizem infusion with overall improved rate control. The patient received treatment for underlying acute bronchitis/bronchiolitis with prednisone and bronchodilator therapy with overall improvement in respiratory status. The patient underwent a transesophageal echocardiogram showing no evidence of atrial thrombus followed by synchronized cardioversion on 11/20/2018. The patient initially returned to sinus mechanism; however, converted back to atrial fibrillation, baseline arrhythmia after the procedure. Current recommendations are to initiate Multaq in addition to anticoagulation with Eliquis. Overall patient remains clinically stable, stable vital signs. I have examined the patient at the time of discharge and discussed followup instructions. The patient verbalized understanding and agreement and ready for discharge on 11/21/2018. DISCHARGE MEDICATIONS: 1. Telmisartan 80 mg p.o. at bedtime. 2. Eliquis 5 mg p.o. b.i.d. 3. Multaq 400 mg p.o. b.i.d. 4. DuoNeb 3 mL nebulized q.4 hours p.r.n. 5. Prednisone 20 mg 2 tabs p.o. daily x3 days, followed by 1 tab p.o. daily x3 days, followed by half tab p.o. daily x3 days. FOLLOWUP: The patient may follow up with her primary care provider, Dr. Kimberly Solares within 7 days of discharge. The patient will follow up with Dr. Gauthier with electrophysiology Service and to call his office for appointment time and date. The patient may follow up with Dr. Giron with [facility] and to call his office for appointment time and date. CONDITION ON DISCHARGE: Stable. ACTIVITY: Ad-lakisha. DIET: Regular. CODE STATUS: Full. DISPOSITION: Home, 11/21/2018. Total time preparing and coordinating discharge is 37 minutes. Job ID: [id number]
--- NOTE | 2018-11-22 09:47 | PRG ---
DATE OF SERVICE: 11/21/2018 SUBJECTIVE: Ms. Palomo seems to be doing fair. Still has some dyspnea and fatigue after her QUYNH ablation procedure yesterday. No neurological symptoms. OBJECTIVE: VITAL SIGNS: Blood pressure is 169/74, heart rate 80, respiratory rate is 18, temperature 98.1 degrees Fahrenheit. GENERAL: Reveals alert and oriented woman, in no apparent distress. NECK: Supple. Jugular veins not distended. CHEST: Coarse without crackles. HEART: Sounds are irregularly irregular. S1 and S2 is variable. Pacemaker site is noted without reaction. ABDOMEN: Benign. Bowel sounds are positive. EXTREMITIES: No edema, clubbing or cyanosis. Telemetry strips reveal recurrent atrial fibrillation, post cardioversion. LABORATORY DATA: Hemoglobin 14.2. Creatinine 0.75. ASSESSMENT AND PLAN: Ms. Palomo is a very pleasant 73-year-old woman with history of atrial fibrillation, previously on Multaq. Now, she presented with recurrent atrial fibrillation, which persisted past several days. It was possibly from bronchitis. She is still recovering from that. We attempted a QUYNH-guided cardioversion, though, had early recurrence of atrial fibrillation. At this point to continue Multaq, both for rate control and future plans for repeat cardioversion. Also, subsequently pulmonary venous isolation procedure is planned after recovery from bronchitis. We transitioned to [place] yesterday from [employer]. Job ID: [id number] [facility]
--- NOTE | 2018-11-23 20:40 | EKG ---
Test Reason : POST CARDIOVERSION Blood Pressure : / mmHG Vent. Rate : 089 BPM Atrial Rate : 089 BPM P-R Int : 000 ms QRS Dur : 088 ms QT Int : 358 ms P-R-T Axes : 000 -12 -30 degrees QTc Int : 435 ms Demand pacemaker; interpretation is based on intrinsic rhythm Sinus rhythm with Premature ventricular complexes or Fusion complexes Minimal voltage criteria for LVH, may be normal variant Nonspecific ST and T wave abnormality Abnormal ECG When compared with ECG of 16-NOV-2018 13:45, (Unconfirmed) Sinus rhythm has replaced Atrial flutter ST now depressed in Inferior leads Nonspecific T wave abnormality, worse in Inferior leads Confirmed by Winston MOON ([id number]) on 11/23/2018 8:39:38 PM Referred By: RAJINDER Confirmed By:Winston MOON
--- NOTE | 2018-11-24 10:42 | EKG ---
Test Reason : Blood Pressure : / mmHG Vent. Rate : 156 BPM Atrial Rate : 156 BPM P-R Int : 000 ms QRS Dur : 088 ms QT Int : 314 ms P-R-T Axes : 000 -22 109 degrees QTc Int : 506 ms Supraventricular tachycardia Left ventricular hypertrophy with repolarization abnormality Nonspecific ST abnormality Abnormal ECG Confirmed by LISA MOON DO ([id number]), communications editor UZAIR KINGSLEY ([id number]) on 11/24/2018 10:42:09 AM Referred By: Confirmed By:LISA MOON DO
--- NOTE | 2018-11-24 11:39 | EKG ---
Test Reason : Blood Pressure : / mmHG Vent. Rate : 157 BPM Atrial Rate : 159 BPM P-R Int : 000 ms QRS Dur : 084 ms QT Int : 314 ms P-R-T Axes : 000 -21 130 degrees QTc Int : 507 ms Supraventricular tachycardia Left ventricular hypertrophy with repolarization abnormality Abnormal ECG Confirmed by MICHELLE HOPPER ([id number]), content editor UZAIR KINGSLEY ([id number]) on 11/24/2018 11:39:28 AM Referred By: Confirmed By:MICHELLE HOPPER
--- NOTE | 2018-11-24 11:39 | EKG ---
Test Reason : Blood Pressure : / mmHG Vent. Rate : 092 BPM Atrial Rate : 322 BPM P-R Int : 000 ms QRS Dur : 084 ms QT Int : 364 ms P-R-T Axes : 000 -11 125 degrees QTc Int : 450 ms Atrial flutter with variable A-V block T wave abnormality, consider lateral ischemia Abnormal ECG Confirmed by MICHELLE HOPPER ([id number]), newspaper editor managing UZAIR KINGSLEY ([id number]) on 11/24/2018 11:39:31 AM Referred By: Confirmed By:MICHELLE HOPPER
== END 2018-11-21 17:13 | disposition home or self-care (01) | DRG 309 ==
LOC: ERS 09:42 → ERHOLD 15:02 → 2NO 18:44
PROVIDERS: ADMIT Internal Medicine; ATTEND Internal Medicine
PROC: 5A2204Z Restoration of Cardiac Rhythm, Single (ICD-10-PCS; principal; 2018-11-20)
PROC: 4B09XSZ Measurement of Respiratory Pacemaker, External Approach (ICD-10-PCS; 2018-11-20)
DX: I48.91 Unspecified atrial fibrillation (principal); I50.32 Chronic diastolic (congestive) heart failure; I25.10 Atherosclerotic heart disease of native coronary artery without angina pectoris; Z95.0 Presence of cardiac pacemaker; I10 Essential (primary) hypertension; Z95.2 Presence of prosthetic heart valve; I11.0 Hypertensive heart disease with heart failure; J20.9 Acute bronchitis, unspecified; M19.90 Unspecified osteoarthritis, unspecified site; E66.9 Obesity, unspecified; G47.33 Obstructive sleep apnea (adult) (pediatric); Z95.1 Presence of aortocoronary bypass graft; Z88.8 Allergy status to other drugs, medicaments and biological substances; Z88.1 Allergy status to other antibiotic agents; Z79.899 Other long term (current) drug therapy; Z79.82 Long term (current) use of aspirin; I48.92 Unspecified atrial flutter; K21.9 Gastro-esophageal reflux disease without esophagitis; Z68.31 Body mass index [BMI] 31.0-31.9, adult
CPT/HCPCS: 36415; 71045; 71250; 80048; 80053; 80162; 82550; 82565; 83605; 83690; 83880; 84484; 85014; 85018; 85025; 85049; 85610; 92960; 93005; 93010; 93306; 93312; 94640; 96361; 96365; 96366; 96367; 96375; 96376; J0456; J0696; J1160; J1650; J2704; J2765; J2930; J7050; J7506; J7620; S0028

== ENCOUNTER → 2018-11-29 | Day surgery (SDC) | payer MEDICARE ==
[2018-11-28 13:14] VITALS: BMI 30.2
--- NOTE | 2018-11-29 17:09 | PRG ---
DATE OF SERVICE: 11/29/2018 ELECTROPHYSIOLOGY FOLLOWUP NOTE AND PACING INTERROGATION REPORT SUBJECTIVE: Ms. Palomo is here for a planned cardioversion. She was discharged from the hospital about a week ago, and she was placed on Multaq. She is brought here back for cardioversion. She seems to be feeling good and no more palpitations noted. No PND or orthopnea. No stroke-like symptoms. Her rhythm as stated. OBJECTIVE: VITAL SIGNS: Blood pressure is stable, heart rate 97, and respirations 12. GENERAL: Alert and oriented woman, in no apparent distress. NECK: Supple. Jugular veins are not distended. CHEST: Coarse without crackles. HEART: Heart sounds are regular rate and rhythm. No murmur or gallop. ABDOMEN: Benign. Bowel sounds positive. EXTREMITIES: Lower extremities without edema, clubbing, or cyanosis. Left precordial pacing insertion site is well healed. DATABASE: EKG reveals atrial paced rhythm. Interrogation of the pacemaker reveals a Tel[employer]visa DR MRI compatible device with battery longevity about 6 years. Lead parameters are adequate sensing 0.6 milliseconds. The interrogation of the atrial arrhythmias revealed termination of the atrial arrhythmia on the 25 of November after an ATP burst. CONCLUSION: Ms. Palomo is a 73-year-old woman with history of aortic valve disease and replacement, who has developed atrial fibrillation in the setting of bronchitis which persisted. Eventually, we were able to chemically cardiovert her with Multaq. Today, she is back in sinus rhythm, and therefore the electrical cardioversion will be canceled. Her pacemaker also seems to have been instrumental by overdrive ATP pacing to stop the arrhythmia. We discussed the needs for continuing Multaq, even though she voiced concerns about the financial burden this medication puts on her. She would continue plans for an ablation therapy, now that her bronchitis symptoms completely resolved, it is reasonable to start planning for an ablation procedure. Pros and cons discussed. She will be scheduled in the near date. Hopefully, we will see her back in the office prior to that. Anticoagulation to continue as well as initiated. Job ID: [id number]
== END ==
LOC: CCL 10:50
PROVIDERS: ATTEND Internal Medicine Cardiovascular Disease
DX: I48.1 Persistent atrial fibrillation (principal); I35.8 Other nonrheumatic aortic valve disorders; G47.30 Sleep apnea, unspecified; I25.10 Atherosclerotic heart disease of native coronary artery without angina pectoris; I10 Essential (primary) hypertension; M19.90 Unspecified osteoarthritis, unspecified site; H04.559 Acquired stenosis of unspecified nasolacrimal duct; Z53.8 Procedure and treatment not carried out for other reasons; Z79.01 Long term (current) use of anticoagulants; Z79.899 Other long term (current) drug therapy; Z88.1 Allergy status to other antibiotic agents; Z88.8 Allergy status to other drugs, medicaments and biological substances; Z91.040 Latex allergy status; Z91.041 Radiographic dye allergy status; Z91.048 Other nonmedicinal substance allergy status; Z95.0 Presence of cardiac pacemaker; Z95.2 Presence of prosthetic heart valve
CPT/HCPCS: 93005; 93010

== ENCOUNTER 2022-12-01 12:26 | Outpatient (CLI) | payer MEDICARE ==
[2022-12-01 13:48] LABS: Hemoglobin 8.1 g/dL (12.0-15.5); Mean Corpuscular HGB CONC 30.1 g/dL (32.0-36.0); Mean Corpuscular Hemoglobin 26.1 pg (27.0-33.0); Mean Corpuscular Volume 86.8 fl (81.6-98.3); Platelet Count 230 10x3/uL (150-450); White Blood Cell (WBC) Count 7.1 10x3/uL (3.5-10.5)
[2022-12-01 13:54] LABS: PTT 27.5 sec (22.0-33.0); Prothrombin Time 10.9 sec (9.5-12.1)
[2022-12-01 14:05] LABS: Anion Gap 13 mmol/L (10-20); BUN (Urea Nitrogen) 16 mg/dL (9.8-20.1); Calc. Creatinine Clearance 0 mL/min (70-130); Calcium 9.5 mg/dL (7.8-10.44); Carbon Dioxide 35 mmol/L (23-31); Chloride 99 mmol/L (98-107); Estimated GFR 49; Glucose 98 mg/dL (83-110); Potassium 3.6 mmol/L (3.5-5.1); Sodium 143 mmol/L (136-145)
== END 2022-12-01 12:27 | disposition home or self-care (01) ==
LOC: LABBT 12:26
PROVIDERS: ATTEND Internal Medicine Cardiovascular Disease
DX: Z01.812 Encounter for preprocedural laboratory examination (principal); I48.0 Paroxysmal atrial fibrillation
CPT/HCPCS: 80048; 85027; 85610; 85730